=== PATIENT | female | born 1965 | race Two or more races ===

== ENCOUNTER 2021-05-11 23:10 | Inpatient (IN) | payer MEDICARE, MEDICAID ==
[~2021-05-11] VITALS: Ht 170.2 cm; Wt 100.9 kg
[~2021-05-11 23:10] MED LIST: CHOL20007 OR; FERR-20 PO; LEVO50TA7 PO; LISI-285 PO; LORA-35 PO; SIMV-8 PO
[2021-05-12 00:38] LABS: Basophils # (auto) 0 10 ^3/uL (0-0.2); Basophils % (auto) 0.2 % (0.0-2.0); Eosinophils # (auto) 0 10 ^3/uL (0-0.8); Hematocrit 40.1 % (36.0-46.0); Hemoglobin 13.5 g/dL (12.2-16.2); Lymphocytes # (auto) 1.1 10 ^3/uL (0.4-5.4); Lymphocytes % (auto) 21.9 % (10.0-50.0); Mean Corpuscular Hemoglobin 28.6 pg (28.0-32.0); Mean Corpuscular Hgb Conc. 33.6 g/dL (32.0-36.0); Mean Corpuscular Volume 85.2 fL (80.0-100.0); Monocytes # (auto) 0.2 10 ^3/uL (0-1.3); Monocytes % (auto) 4.9 % (0.0-12.0); Neutrophils # (auto) 3.7 10 ^3/uL (1.6-8.6); Nucleated Red Blood Cells % 0.1 %; White Blood Cell 5.1 10^3/uL (4.4-10.8)
[2021-05-12] MEDS ORDERED: SODIUM CHLORIDE 0.9% 1,000 ML IV ONE (00:45)
[2021-05-12] MEDS ORDERED: ACETAMINOPHEN 325 MG TAB PO ONE ×2 (00:45→01:00)
[2021-05-12 00:56] LABS: Albumin 3.7 g/dL (3.4-5.0); Anion Gap 12 (5-15); BUN/Creatinine Ratio 21.7; Blood Urea Nitrogen 34 mg/dL (7-18); Carbon Dioxide 21 mmol/L (21-32); Chloride 102 mmol/L (98-107); GFR African American 44 mL/min; GFR Non-African American 36 mL/min; Glucose 113 mg/dL (74-106); Potassium 4.2 mmol/L (3.5-5.1); Sodium 135 mmol/L (136-145)
[2021-05-12 01:06] LABS: Alanine Aminotransferase 37 U/L (13-56); Alkaline Phosphatase 119 U/L (45-117); Aspartate Aminotransferase 47 U/L (15-37); Bilirubin, Total 0.7 mg/dL (0.2-1.0); Total Protein 8.7 g/dL (6.4-8.2)
[2021-05-12 01:14] LABS: Calcium < 5.0 mg/dL (8.5-10.1)
[2021-05-12] MEDS ORDERED: CALCIUM CHL IV ONE (01:30)
[2021-05-12] MEDS ORDERED: CALCIUM GLUC 1,000mg/50ml-NS 50 ML IV ONE ×3 (01:30)
[2021-05-12] MEDS ORDERED: D5W 5% IV ONE (01:30)
[2021-05-12 03:35] LABS: Urine Bacteria FEW /hpf (None Seen); Urine Blood Negative /uL (Negative); Urine Hyaline Cast FEW /lpf (0 - 2); Urine Specific Gravity 1.014 (1.001-1.035); Urine WBC 1 /hpf (0 - 5)
[2021-05-12] MEDS ORDERED: CHOLECALCIFEROL (VITD3) 2,000 UNIT CAP/TAB PO ONE (11:00)
[2021-05-12] MEDS ORDERED: ZINC SULFATE 220mg CAP or TAB PO ONE (11:00)
[2021-05-12] MEDS ORDERED: AZITHROMYCIN 500MG/ 250ML 250 ML IV ONE (11:00)
[2021-05-12] MEDS ORDERED: ASCORBIC ACID 500 MG TAB PO ONE (11:00)
[2021-05-12 11:15] VITALS: BP 100/73
[2021-05-12] MEDS ORDERED: ACETAMINOPHEN 500 MG TAB PO PRN (11:30)
[2021-05-12] MEDS ORDERED: traMADol HCL 50 MG TAB PO PRN (11:30)
[2021-05-12] MEDS ORDERED: MORPHINE SULFATE INJECTION 2 MG/ML SYRG IV PRN ×2 (11:30)
[2021-05-12] MEDS ORDERED: TEMAZEPAM 15 MG CAP PO PRN (11:30)
[2021-05-12] MEDS ORDERED: NITROGLYCERIN 0.4 MG SL TAB SL PRN (11:30)
[2021-05-12] MEDS ORDERED: REMDESIVIR PER PHARMACY 0 ML IV SCH (11:30)
[2021-05-12] MEDS ORDERED: levoFLOXacin 500MG 100 ML IV ONE (11:30)
[2021-05-12] MEDS ORDERED: PROMETHAZINE HCL 25 MG/ML 1ML IV PRN (11:30)
[2021-05-12] MEDS: CHOLECALCIFEROL (VITD3) 2,000 UNIT CAP/TAB PO SCH (11:37)
[2021-05-12] MEDS: ASCORBIC ACID 1,000 MG TAB PO SCH (11:37)
[2021-05-12] MEDS: DexAMETHasone SOD PHOS 10MG/1ML VIAL INJ IV SCH (11:57)
[2021-05-12] MEDS ORDERED: REMDESIVIR 200 MG in NS 210ml LOADING DOSE ADULT IV ONE (14:00)
[2021-05-12] MEDS: metroNIDAZOLE 500 MG TAB PO SCH ×2 (15:27→21:43)
[2021-05-12 16:39] VITALS: BP 116/77
[2021-05-12] MEDS: CALCIUM W/VIT D (600MG/400IU) TAB PO SCH (18:43)
[2021-05-12] MEDS: BUDESONIDE (INHALATION) 180 MCG IH IN SCH (18:56)
[2021-05-12] MEDS: ALBUTEROL SULF HFA 90MCG INH 200DOSE IN PRN (19:13)
[2021-05-12] MEDS: FLORASTOR (S. BOULARDII) 250 MG CAP PO SCH (21:43)
[2021-05-12] MEDS: ENOXAPARIN SOD 40 MG/0.4 ML SYRINGE SC SCH (21:44)
[2021-05-12 22:00] VITALS: BP 106/77
[2021-05-13 05:00] VITALS: BP 100/69
[2021-05-13] MEDS: metroNIDAZOLE 500 MG TAB PO SCH ×3 (05:32→21:12)
[2021-05-13 06:43] LABS: Basophils # (auto) 0 10 ^3/uL (0-0.2); Basophils % (auto) 0.1 % (0.0-2.0); Eosinophils # (auto) 0 10 ^3/uL (0-0.8); Hematocrit 35.7 % (36.0-46.0); Hemoglobin 12.3 g/dL (12.2-16.2); Lymphocytes # (auto) 1.1 10 ^3/uL (0.4-5.4); Mean Corpuscular Hemoglobin 28.9 pg (28.0-32.0); Mean Corpuscular Hgb Conc. 34.3 g/dL (32.0-36.0); Mean Corpuscular Volume 84.1 fL (80.0-100.0); Monocytes # (auto) 0.2 10 ^3/uL (0-1.3); Monocytes % (auto) 4.6 % (0.0-12.0); Neutrophils # (auto) 3.7 10 ^3/uL (1.6-8.6); Neutrophils % (auto) 73.3 % (37.0-80.0); Red Blood Cells 4.25 10^6/uL (4.0-5.20); Red Cell Distribution Width 13.9 % (11.8-14.3); White Blood Cell 5.1 10^3/uL (4.4-10.8)
[2021-05-13 06:59] LABS: Potassium 4.2 mmol/L (3.5-5.1)
[2021-05-13 07:07] LABS: Albumin 3.4 g/dL (3.4-5.0); BUN/Creatinine Ratio 26.6; Total Protein 7.9 g/dL (6.4-8.2)
[2021-05-13 07:17] LABS: Bilirubin, Total 0.3 mg/dL (0.2-1.0)
[2021-05-13 07:23] LABS: Calcium 5.2 mg/dL (8.5-10.1)
[2021-05-13 09:00] VITALS: BP 116/56
[2021-05-13] MEDS: ASCORBIC ACID 1,000 MG TAB PO SCH (09:27)
[2021-05-13] MEDS: CALCIUM W/VIT D (600MG/400IU) TAB PO SCH ×2 (09:27→17:32)
[2021-05-13] MEDS: CHOLECALCIFEROL (VITD3) 2,000 UNIT CAP/TAB PO SCH (09:28)
[2021-05-13] MEDS: ZINC SULFATE 220mg CAP or TAB PO SCH (09:28)
[2021-05-13] MEDS: FLORASTOR (S. BOULARDII) 250 MG CAP PO SCH ×2 (09:28→21:11)
[2021-05-13] MEDS: levoFLOXacin 500MG 100 ML IV SCH (09:29)
[2021-05-13] MEDS: ENOXAPARIN SOD 40 MG/0.4 ML SYRINGE SC SCH ×2 (09:29→21:12)
[2021-05-13] MEDS: DexAMETHasone SOD PHOS 10MG/1ML VIAL INJ IV SCH (09:29)
[2021-05-13] MEDS: MAGNESIUM OXIDE 400 MG TAB PO SCH ×2 (09:36→21:12)
[2021-05-13 13:00] VITALS: BP 112/73
[2021-05-13 15:25] VITALS: BP 114/72
[2021-05-13] MEDS: REMDESIVIR 100mg 100 MG in SODIUM CHL 0.9% 230 ML IV SCH (15:25)
[2021-05-13] MEDS ORDERED: LEVO175T66 PO (16:17)
[2021-05-13 17:00] VITALS: BP 125/85
[2021-05-13] MEDS ORDERED: CALCIUM GLUC 1,000mg/50ml-NS 50 ML IV ONE (17:00)
[2021-05-13] MEDS: BUDESONIDE (INHALATION) 180 MCG IH IN SCH (18:53)
[2021-05-13] MEDS: ALBUTEROL SULF HFA 90MCG INH 200DOSE IN PRN (18:53)
[2021-05-13 22:00] VITALS: BP 113/75
[2021-05-14 05:00] VITALS: BP 110/67
[2021-05-14] MEDS: metroNIDAZOLE 500 MG TAB PO SCH (06:12)
[2021-05-14] MEDS: LEVOTHYROXINE SODIUM 50 MCG TAB PO SCH (06:12)
[2021-05-14] MEDS: ALBUTEROL SULF HFA 90MCG INH 200DOSE IN PRN ×2 (06:44→23:29)
[2021-05-14] MEDS: BUDESONIDE (INHALATION) 180 MCG IH IN SCH ×2 (06:44→23:29)
[2021-05-14 08:00] VITALS: BP 104/75
[2021-05-14 09:00] VITALS: BP 104/75
[2021-05-14] MEDS: CHOLECALCIFEROL (VITD3) 2,000 UNIT CAP/TAB PO SCH (09:08)
[2021-05-14] MEDS: ASCORBIC ACID 1,000 MG TAB PO SCH (09:08)
[2021-05-14] MEDS: MAGNESIUM OXIDE 400 MG TAB PO SCH ×2 (09:08→20:24)
[2021-05-14] MEDS: ZINC SULFATE 220mg CAP or TAB PO SCH (09:08)
[2021-05-14] MEDS: ENOXAPARIN SOD 40 MG/0.4 ML SYRINGE SC SCH ×2 (09:08→20:25)
[2021-05-14] MEDS: FLORASTOR (S. BOULARDII) 250 MG CAP PO SCH ×2 (09:08→20:25)
[2021-05-14] MEDS: levoFLOXacin 500MG 100 ML IV SCH (09:09)
[2021-05-14] MEDS: DexAMETHasone SOD PHOS 10MG/1ML VIAL INJ IV SCH (09:10)
[2021-05-14] MEDS: CALCIUM W/VIT D (600MG/400IU) TAB PO SCH ×2 (09:43→17:33)
[2021-05-14] MEDS ORDERED: CALCIUM CHL 100MG/ML 1,000 MG in D5W 5% 100 ML IV ONE ×2 (10:45→16:45)
[2021-05-14 13:00] VITALS: BP 101/72
[2021-05-14 14:39] LABS: Calcium 6.7 mg/dL (8.5-10.1)
[2021-05-14] MEDS: REMDESIVIR 100mg 100 MG in SODIUM CHL 0.9% 230 ML IV SCH (15:26)
[2021-05-14] MEDS ORDERED: CHOLECALCIFEROL (VITD3) 2,000 UNIT CAP/TAB PO ONE (16:45)
[2021-05-14 17:00] VITALS: BP 103/69
[2021-05-14] MEDS ORDERED: FEXOFENADINE HCL 60 MG TAB PO ONE (17:15)
[2021-05-14 22:00] VITALS: BP 110/71
[2021-05-15] VITALS (7 sets, daily range): BP systolic 93–117; BP diastolic 64–79
[2021-05-15 05:38] LABS: Basophils # (auto) 0 10 ^3/uL (0-0.2); Basophils % (auto) 0.2 % (0.0-2.0); Eosinophils # (auto) 0 10 ^3/uL (0-0.8); Hematocrit 33.5 % (36.0-46.0); Hemoglobin 11.7 g/dL (12.2-16.2); Lymphocytes # (auto) 1.2 10 ^3/uL (0.4-5.4); Mean Corpuscular Hemoglobin 28.6 pg (28.0-32.0); Mean Corpuscular Hgb Conc. 34.8 g/dL (32.0-36.0); Mean Corpuscular Volume 82.2 fL (80.0-100.0); Monocytes # (auto) 0.3 10 ^3/uL (0-1.3); Neutrophils # (auto) 3.2 10 ^3/uL (1.6-8.6); Neutrophils % (auto) 67.8 % (37.0-80.0); Nucleated Red Blood Cells % 0.1 %; Red Blood Cells 4.08 10^6/uL (4.0-5.20); Red Cell Distribution Width 13.9 % (11.8-14.3); White Blood Cell 4.7 10^3/uL (4.4-10.8)
[2021-05-15 06:01] LABS: Calcium 6.2 mg/dL (8.5-10.1); Magnesium 2.3 mg/dL (1.6-2.6); Potassium 3.9 mmol/L (3.5-5.1)
[2021-05-15 06:04] LABS: Phosphorus 6.4 mg/dL (2.5-4.90)
[2021-05-15] MEDS: LEVOTHYROXINE SODIUM 50 MCG TAB PO SCH (06:18)
[2021-05-15] MEDS: ALBUTEROL SULF HFA 90MCG INH 200DOSE IN PRN ×2 (06:19→18:55)
[2021-05-15] MEDS: BUDESONIDE (INHALATION) 180 MCG IH IN SCH ×2 (06:19→18:55)
[2021-05-15] MEDS: ZINC SULFATE 220mg CAP or TAB PO SCH (07:32)
[2021-05-15] MEDS: ENOXAPARIN SOD 40 MG/0.4 ML SYRINGE SC SCH ×2 (07:32→21:14)
[2021-05-15] MEDS: DexAMETHasone SOD PHOS 10MG/1ML VIAL INJ IV SCH (07:32)
[2021-05-15] MEDS: FLORASTOR (S. BOULARDII) 250 MG CAP PO SCH ×2 (07:33→21:14)
[2021-05-15] MEDS: MAGNESIUM OXIDE 400 MG TAB PO SCH ×2 (07:33→21:14)
[2021-05-15] MEDS: CALCIUM W/VIT D (600MG/400IU) TAB PO SCH ×2 (07:33→18:00)
[2021-05-15] MEDS: ASCORBIC ACID 1,000 MG TAB PO SCH (07:33)
[2021-05-15] MEDS: CHOLECALCIFEROL (VITD3) 2,000 UNIT CAP/TAB PO SCH (07:33)
[2021-05-15] MEDS ORDERED: CALCIUM GLUC 1,000mg/50ml-NS 50 ML IV ONE ×2 (11:30→15:15)
[2021-05-15 14:23] LABS: BUN/Creatinine Ratio 23.2; Calcium 7.5 mg/dL (8.5-10.1)
[2021-05-15] MEDS: REMDESIVIR 100mg 100 MG in SODIUM CHL 0.9% 230 ML IV SCH (15:35)
[2021-05-16 05:00] VITALS: BP 106/68
[2021-05-16] MEDS: LEVOTHYROXINE SODIUM 50 MCG TAB PO SCH (06:18)
[2021-05-16 06:41] LABS: BUN/Creatinine Ratio 31.8
[2021-05-16 06:46] LABS: Calcium 5.9 mg/dL (8.5-10.1)
[2021-05-16 09:00] VITALS: BP 107/75
[2021-05-16] MEDS: CALCIUM W/VIT D (600MG/400IU) TAB PO SCH ×2 (09:00→18:16)
[2021-05-16] MEDS: BUDESONIDE (INHALATION) 180 MCG IH IN SCH ×2 (09:29→19:05)
[2021-05-16] MEDS: ZINC SULFATE 220mg CAP or TAB PO SCH (09:56)
[2021-05-16] MEDS: FLORASTOR (S. BOULARDII) 250 MG CAP PO SCH (09:56)
[2021-05-16] MEDS: DexAMETHasone SOD PHOS 10MG/1ML VIAL INJ IV SCH (09:56)
[2021-05-16] MEDS: CHOLECALCIFEROL (VITD3) 2,000 UNIT CAP/TAB PO SCH (09:57)
[2021-05-16] MEDS: MAGNESIUM OXIDE 400 MG TAB PO SCH (09:57)
[2021-05-16] MEDS: ENOXAPARIN SOD 40 MG/0.4 ML SYRINGE SC SCH (09:57)
[2021-05-16] MEDS: ASCORBIC ACID 1,000 MG TAB PO SCH (09:57)
[2021-05-16] MEDS ORDERED: CALCIUM GLUC 1,000mg/50ml-NS 50 ML IV ONE (10:45)
[2021-05-16] MEDS ORDERED: CALC500C71 PO (11:04)
[2021-05-16] MEDS ORDERED: ASCO10003 PO (11:04)
[2021-05-16 13:00] VITALS: BP 105/71
[2021-05-16] MEDS: REMDESIVIR 100mg 100 MG in SODIUM CHL 0.9% 230 ML IV SCH (15:00)
[2021-05-16 17:00] VITALS: BP 111/74
[2021-05-16] MEDS: ALBUTEROL SULF HFA 90MCG INH 200DOSE IN PRN (19:05)
== END 2021-05-16 20:19 | disposition home or self-care (01) | DRG 177 ==
LOC: ER 23:10 → TELE 05-12 11:19 → EAST 05-12 13:17
PROVIDERS: ADMIT Internal Medicine; ATTEND Internal Medicine Pulmonary Disease
PROC: XW033E5 Introduction of Remdesivir Anti-infective into Peripheral Vein, Percutaneous Approach, New Technology Group 5 (ICD-10-PCS; principal; 2021-05-12)
DX: U07.1 COVID-19 (principal); J12.82 Pneumonia due to coronavirus disease 2019; Q61.3 Polycystic kidney, unspecified; E83.51 Hypocalcemia; I10 Essential (primary) hypertension; E83.42 Hypomagnesemia; M54.5 Low back pain; E78.5 Hyperlipidemia, unspecified; K57.90 Diverticulosis of intestine, part unspecified, without perforation or abscess without bleeding; Z82.49 Family history of ischemic heart disease and other diseases of the circulatory system; Z82.62 Family history of osteoporosis; Z83.3 Family history of diabetes mellitus; Z85.850 Personal history of malignant neoplasm of thyroid; Z90.710 Acquired absence of both cervix and uterus; E89.2 Postprocedural hypoparathyroidism
CPT/HCPCS: 36415; 51702; 71045; 74176; 80048; 80053; 81001; 82040; 82310; 82330; 83605; 83735; 83880; 83970; 84100; 84484; 85025; 87040; 87086; 87177; 87426; 87493; 93005; 94640; 96365; 96366; 96367; G0378; J1100; J1956; J7060

== ENCOUNTER 2022-12-18 07:18 | Emergency (ER) | payer MEDICARE, MEDICAID ==
[~2022-12-18] VITALS: Ht 170.2 cm; Wt 100.0 kg
[~2022-12-18 07:18] MED LIST changes: +ASCO10003 PO; +CALC500C71 PO; +LEVO175T66 PO; -LEVO50TA7 PO
[2022-12-18 07:48] VITALS: BP 122/70
[2022-12-18 08:08] LABS: Basophils # (auto) 0 10 ^3/uL (0-0.2); Basophils % (auto) 0.4 % (0.0-2.0); Eosinophils # (auto) 0.2 10 ^3/uL (0-0.8); Eosinophils % (auto) 2.1 % (0.0-7.0); Hematocrit 34.3 % (36.0-46.0); Hemoglobin 11.6 g/dL (12.2-16.2); Lymphocytes % (auto) 27.5 % (10.0-50.0); Mean Corpuscular Hemoglobin 28.4 pg (28.0-32.0); Mean Corpuscular Hgb Conc. 33.9 g/dL (32.0-36.0); Mean Corpuscular Volume 83.8 fL (80.0-100.0); Monocytes # (auto) 0.3 10 ^3/uL (0-1.3); Monocytes % (auto) 4.7 % (0.0-12.0); Neutrophils # (auto) 4.8 10 ^3/uL (1.6-8.6); Neutrophils % (auto) 65.3 % (37.0-80.0); Nucleated Red Blood Cells % 0.1 %; Red Blood Cells 4.09 10^6/uL (4.0-5.20); Red Cell Distribution Width 14.6 % (11.8-14.3); White Blood Cell 7.4 10^3/uL (4.4-10.8)
[2022-12-18 08:21] LABS: INR 0.96 (0.9-1.15); Partial Thromboplastin Time 29.2 sec (24.6-33.4)
[2022-12-18 08:27] LABS: Potassium 4.4 mmol/L (3.5-5.1)
[2022-12-18 08:34] LABS: Albumin 3.9 g/dL (3.4-5.0); BUN/Creatinine Ratio 22.1; Bilirubin, Total 0.4 mg/dL (0.2-1.0); Calcium 8.2 mg/dL (8.5-10.1); Total Protein 7.8 g/dL (6.4-8.2)
[2022-12-18] MEDS ORDERED: ESCI10TA PO (22:42)
== END 2022-12-18 09:08 | disposition home or self-care (01) ==
LOC: ER 07:18
DX: Z01.818 Encounter for other preprocedural examination (principal); M24.374 Pathological dislocation of right foot, not elsewhere classified; E78.5 Hyperlipidemia, unspecified; I10 Essential (primary) hypertension; E66.01 Morbid (severe) obesity due to excess calories; Z79.01 Long term (current) use of anticoagulants; Z20.822 Contact with and (suspected) exposure to COVID-19; Z90.710 Acquired absence of both cervix and uterus; Z68.34 Body mass index [BMI] 34.0-34.9, adult
CPT/HCPCS: 36415; 80053; 84484; 85025; 85610; 85730; 87426; 93005

== ENCOUNTER 2022-12-18 11:45 | Inpatient (IN) | payer MEDICARE, MEDICAID ==
[~2022-12-18] VITALS: Ht 170.2 cm; Wt 103.0 kg
[2022-12-18] MEDS ORDERED: ACETAMINOPHEN 325 MG TAB PO PRN (20:30)
[2022-12-18 21:00] VITALS: BP 151/90
[2022-12-18] MEDS: HYDROcodone-ACET 5/325MG TAB PO PRN (22:12)
[2022-12-18] MEDS ORDERED: ESCI10TA PO (22:42)
[2022-12-19] MEDS: LACTATED RINGER'S 1,000 ML IV SCH ×3 (00:02→19:50)
[2022-12-19 05:00] VITALS: BP 97/54
[2022-12-19 05:48] LABS: Basophils # (auto) 0 10 ^3/uL (0-0.2); Basophils % (auto) 0.5 % (0.0-2.0); Eosinophils # (auto) 0.2 10 ^3/uL (0-0.8); Eosinophils % (auto) 2.5 % (0.0-7.0); Hematocrit 30.8 % (36.0-46.0); Hemoglobin 10.3 g/dL (12.2-16.2); Lymphocytes # (auto) 2.1 10 ^3/uL (0.4-5.4); Mean Corpuscular Hemoglobin 27.8 pg (28.0-32.0); Mean Corpuscular Hgb Conc. 33.3 g/dL (32.0-36.0); Mean Corpuscular Volume 83.5 fL (80.0-100.0); Monocytes # (auto) 0.5 10 ^3/uL (0-1.3); Monocytes % (auto) 5.6 % (0.0-12.0); Neutrophils # (auto) 5.4 10 ^3/uL (1.6-8.6); Neutrophils % (auto) 65.4 % (37.0-80.0); Red Blood Cells 3.69 10^6/uL (4.0-5.20); Red Cell Distribution Width 14.1 % (11.8-14.3); White Blood Cell 8.2 10^3/uL (4.4-10.8)
[2022-12-19 06:00] LABS: INR 1.01 (0.9-1.15); Partial Thromboplastin Time 30.1 sec (24.6-33.4)
[2022-12-19 06:12] LABS: Albumin 3.3 g/dL (3.4-5.0); BUN/Creatinine Ratio 27.5; Bilirubin, Total 0.5 mg/dL (0.2-1.0); Calcium 8.1 mg/dL (8.5-10.1); Potassium 4.3 mmol/L (3.5-5.1); Total Protein 7.2 g/dL (6.4-8.2)
[2022-12-19 09:09] VITALS: BP 101/60
[2022-12-19] MEDS ORDERED: ceFAZolin 2 GM in D5W 5% 100 ML IV ONE (12:00)
[2022-12-19] MEDS ORDERED: DexAMETHasone SOD PHOS 10MG/1ML VIAL INJ ONE (12:26)
[2022-12-19] MEDS ORDERED: fentaNYL CITRATE 100 MCG/2 ML VL ONE (12:26)
[2022-12-19] MEDS ORDERED: HYDROmorphone HCL 2 MG/ML VL/or syr ONE (12:26)
[2022-12-19] MEDS ORDERED: ONDANSETRON HCL 4 MG/2 ML VIAL ONE (12:26)
[2022-12-19] MEDS ORDERED: BUPIVACAINE 0.5% P/F INJ 10 ML VIAL ONE (12:26)
[2022-12-19] MEDS ORDERED: SODIUM CHLORIDE LOCK 10 ML ONE (12:26)
[2022-12-19] MEDS ORDERED: PROPOFOL 10 MG/ML 20 ML IV ONE (12:26)
[2022-12-19] MEDS ORDERED: MIDAZOLAM HCL 2MG/2ML 2ml VIAL (1mg/ml) ONE (12:26)
[2022-12-19] MEDS ORDERED: ceFAZolin 1GM/50ML 100 ML IV ONE (12:33)
[2022-12-19] MEDS ORDERED: METOCLOPRAMIDE HCL 5MG/ml INJ 2ml VIAL IV PRN (12:45)
[2022-12-19] MEDS ORDERED: ACCU-CHEK COMFORT CURVE STRIP VI ONE (12:45)
[2022-12-19] MEDS ORDERED: MORPHINE SULFATE INJ 2 MG/ml SYRG IV PRN (12:45)
[2022-12-19] MEDS ORDERED: HYDROmorphone HCL 2 MG/ML VL/or syr IV PRN (12:45)
[2022-12-19 13:00] VITALS: BP 103/64
[2022-12-19] MEDS: HYDROmorphone HCL 2 MG/ML VL/or syr IV PRN ×3 (15:13→15:43)
[2022-12-19 16:57] VITALS: BP 115/69
[2022-12-19] MEDS: HYDROcodone-ACET 5/325MG TAB PO PRN (21:01)
[2022-12-19 22:00] VITALS: BP 112/76
[2022-12-20 05:00] VITALS: BP 103/55
[2022-12-20 08:51] VITALS: BP 107/66
[2022-12-20] MEDS: LACTATED RINGER'S 1,000 ML IV SCH (09:00)
== END 2022-12-20 11:51 | disposition home or self-care (01) | DRG 494 ==
LOC: OVERFLOW 16:50 → WEST WING 19:00
PROVIDERS: ADMIT Orthopaedic Surgery Sports Medicine; ATTEND Orthopaedic Surgery Sports Medicine
PROC: 0QSG04Z Reposition Right Tibia with Internal Fixation Device, Open Approach (ICD-10-PCS; 2022-12-19)
PROC: 0QSJ04Z Reposition Right Fibula with Internal Fixation Device, Open Approach (ICD-10-PCS; principal; 2022-12-19 12:46)
DX: S82.851A Displaced trimalleolar fracture of right lower leg, initial encounter for closed fracture (principal); E66.9 Obesity, unspecified; E78.5 Hyperlipidemia, unspecified; Z68.35 Body mass index [BMI] 35.0-35.9, adult; I10 Essential (primary) hypertension; D64.9 Anemia, unspecified; Z20.822 Contact with and (suspected) exposure to COVID-19; W01.0XXA Fall on same level from slipping, tripping and stumbling without subsequent striking against object, initial encounter; Y93.01 Activity, walking, marching and hiking; R73.03 Prediabetes; Z82.49 Family history of ischemic heart disease and other diseases of the circulatory system; Z82.62 Family history of osteoporosis; Z83.3 Family history of diabetes mellitus; Z90.710 Acquired absence of both cervix and uterus; Y92.89 Other specified places as the place of occurrence of the external cause; Y99.8 Other external cause status
CPT/HCPCS: 36415; 71045; 73600; 73610; 76000; 80053; 82962; 84484; 85025; 85610; 85730; 86850; 86900; 86901; 87426; 93005; 93306; G0378; J0690; J1100; J2250; J2405; J2704; J3490; J7060